=== PATIENT | female | born 1930 | race Caucasian/White ===

== ENCOUNTER 2019-11-25 15:13 | Inpatient (IN) | payer MEDICARE, OTHER ==
[~2019-11-25] VITALS: Ht 160 cm; Wt 84.4 kg
[~2019-11-25 15:13] MED LIST: ASPIRIN325 PO; CALCIUM 600 WI1 EAC5 PO; CARDIZEM CD180 MG PO; DILTIAZEM ER180 M1 PO; MELATONIN3 MG; OMEGA-31000 MG PO; TOPROL XL25 MG PO; TOPROL XL50 MG PO; ZOCOR20 MG PO; [UNRECOGNIZED DRUG - OTHER]
[2019-11-25 15:24] VITALS: BP 124/91
[2019-11-25 15:45] LABS: ABSOLUTE BASOPHILS 0.1 thou/uL (0.0-0.2); ABSOLUTE EOSINOPHILS 0.1 thou/uL (0.0-0.7); ABSOLUTE LYMPHOCYTES 1.6 thou/uL (0.8-5.3); ABSOLUTE MONOCYTES 0.9 thou/uL (0.0-1.2); ABSOLUTE NEUTROPHILS 7.4 thou/uL (1.6-8.1); BASOPHILS 0.5 %; EOSINOPHILS 0.9 %; HEMATOCRIT 39.7 % (37.0-47.0); HEMOGLOBIN 13.6 gm/dL (12.0-15.0); LYMPHOCYTES 16.1 %; MCH 30.9 pg (26.0-34.0); MCHC 34.2 g/dL (28.0-37.0); MCV 90.2 fL (80.0-100.0); MONOCYTES 8.9 %; MPV 7.8 fl. (7.2-11.1); NUCLEATED RBCS 0 /100WBC; PLATELET COUNT* 192 thou/uL (150-400); POLYS 73.6 %; RDW-CV 13.4 % (10.5-14.5)
[2019-11-25 15:49] LABS: APTT 26.4 Seconds (25.0-31.3); PROTIME 10.3 Seconds (9.20-11.50)
[2019-11-25 15:58] LABS: CREATININE 1.1 mg/dL (0.6-1.3)
[2019-11-25] MEDS ORDERED: GLIMEPIRIDE1 MG PO (15:59)
[2019-11-25] MEDS ORDERED: FISH OIL 1,0001 EAC9 PO (16:00)
[2019-11-25] MEDS ORDERED: GLUCOSAMINE HC500 M1 PO (16:00)
[2019-11-25] MEDS ORDERED: SUPER THERAVIT1 EACH PO (16:00)
[2019-11-25] MEDS ORDERED: ASA81BEC PO (16:00)
[2019-11-25 16:09] LABS: MAGNESIUM 1.9 mg/dL (1.8-2.4); TOTAL BILIRUBIN 0.4 mg/dL (<0.1-1.0); TOTAL PROTEIN 6.8 g/dL (6.4-8.2)
--- NOTE | 2019-11-25 17:17 | EKG ---
[place] [address] ELECTROCARDIOGRAM REPORT Name: NICKO EVERETT Room: [facility]#: [id number] Admission: 11/25/19 Attend Phys: Discharge: Date of : [birth year] Date of Service: 11/25/19 1521 Report #: [id number] THIS REPORT FOR: //name// [facility] ED Test Date: 2019-11-25 Test Time: 15:21:53 Pat Name: NICKO AGUILAONNELL Department: Room: Gender: F [place] In: [place] : 1930 Requested By: Qasim Martin Order Number: [id number] MD: Andriy Ledezma Measurements Intervals [place] Rate: 189 P: 0 OR: 127 QRS: 96 QRSD: 140 T: -24 QT: 282 QTc: 501 Interpretive Statements Supraventricular tachycardia RBBB and LPFB Compared to ECG 07/21/2010 15:50:57 Left posterior fascicular block now present Right bundle-branch block now present Sinus rhythm at normal rate no longer present Ventricular premature complex(es) no longer present Electronically Signed On 11-25-2019 17:17:10 CDT by Andriy Ledezma [email or web address] <ELECTRONICALLY SIGNED> By: Andriy Ledezma MD, FAC 11/25/19 1717 1521 1521 Andriy Ledezma MD, [facility] /EPI
--- NOTE | 2019-11-25 17:17 | EKG ---
[place] [address] ELECTROCARDIOGRAM REPORT Name: NICKO EVERETT Room: [facility]#: [id number] Admission: 11/25/19 Attend Phys: Discharge: Date of : [birth year] Date of Service: 11/25/19 1533 Report #: [id number] THIS REPORT FOR: //name// [facility] ED Test Date: 2019-11-25 Test Time: 15:33:21 Pat Name: NICKO EVERETT Department: Room: Gender: County Agent: [place] : 1930 Requested By: Qasim Martin Order Number: [id number] MD: Andriy Ledezma Measurements Intervals [place] Rate: 127 P: 62 DE: 142 QRS: 15 QRSD: 127 T: -8 QT: 322 QTc: 469 Interpretive Statements Sinus tachycardia Probable left atrial enlargement Right bundle branch block Compared to ECG 11/25/2019 15:21:53 Left posterior fascicular block no longer present Myocardial infarct finding no longer present Heart rate has decreased Electronically Signed On 11-25-2019 17:17:31 CDT by Andriy Ledezma [email or web address] <ELECTRONICALLY SIGNED> By: Andriy Ledezma MD, [facility] 11/25/19 1717 1533 1533 Andriy Ledezma MD, [facility] /EPI
[2019-11-25 20:05] VITALS: BP 169/91
[2019-11-25 20:25] VITALS: BP 178/76
[2019-11-26] VITALS (7 sets, daily range): BP systolic 132–170; BP diastolic 58–72
[2019-11-26 04:51] LABS: ABSOLUTE EOSINOPHILS 0.2 thou/uL (0.0-0.7); ABSOLUTE LYMPHOCYTES 1.7 thou/uL (0.8-5.3); ABSOLUTE MONOCYTES 0.8 thou/uL (0.0-1.2); ABSOLUTE NEUTROPHILS 4.4 thou/uL (1.6-8.1); BASOPHILS 0.6 %; EOSINOPHILS 2.2 %; HEMATOCRIT 34.3 % (37.0-47.0); HEMOGLOBIN 11.9 gm/dL (12.0-15.0); LYMPHOCYTES 23.8 %; MCH 30.9 pg (26.0-34.0); MCHC 34.8 g/dL (28.0-37.0); MCV 88.9 fL (80.0-100.0); MONOCYTES 10.9 %; NUCLEATED RBCS 0 /100WBC; PLATELET COUNT* 173 thou/uL (150-400); POLYS 62.5 %; RBC 3.85 mil/uL (4.20-5.00); RDW-CV 13.1 % (10.5-14.5); WBC 7.1 thou/uL (4.0-11.0)
[2019-11-26 05:07] LABS: CALCIUM 8.6 mg/dL (8.5-10.1); CREATININE 0.9 mg/dL (0.6-1.3); POTASSIUM 3.8 mmol/L (3.5-5.1)
[2019-11-26 10:46] LABS: CHOLESTEROL 156 mg/dL (<200); HDL CHOLESTEROL 47 mg/dL (>40); LDL CHOLESTEROL 91 mg/dL (<100); TC:HDL 3.3 Ratio (Not establshd); TRIGLYCERIDE 93 mg/dL (<150); VLDL 19 mg/dL (<40)
[2019-11-26 10:47] LABS: SERUM ASSESSMENT Clear
[2019-11-26] MEDS ORDERED: CARDIZEM CD120 MG PO (19:27)
== END 2019-11-26 19:53 | disposition home or self-care (01) | DRG 281 ==
LOC: M.ERS 15:13 → M.TBA-ER 18:25 → M.2W 18:25
PROVIDERS: Emergency Medicine Emergency Medical Services; Registered Nurse; ADMIT Internal Medicine; ATTEND Internal Medicine
DX: I21.4 Non-ST elevation (NSTEMI) myocardial infarction (principal); I47.1 Supraventricular tachycardia; I11.9 Hypertensive heart disease without heart failure; E11.9 Type 2 diabetes mellitus without complications; Z20.828 Contact with and (suspected) exposure to other viral communicable diseases; M19.90 Unspecified osteoarthritis, unspecified site; Z79.82 Long term (current) use of aspirin; Z79.899 Other long term (current) drug therapy; Z90.710 Acquired absence of both cervix and uterus; Z98.42 Cataract extraction status, left eye; Z98.41 Cataract extraction status, right eye; E78.5 Hyperlipidemia, unspecified